=== PATIENT | male | born 1995 | race Caucasian/White ===

== ENCOUNTER 2017-11-24 02:39 | Emergency (ER) | payer OTHER ==
[~2017-11-24] VITALS: Ht 185.4 cm; Wt 90.7 kg
[~2017-11-24 02:39] MED LIST: AMOXICILLIN500 M1 PO; BACTRIM DS TAB1 EACH PO; CONCERTA18 M1 PO; DEPAKOTE; FOCALIN XR10 MG; NORCO 5-325 TA1 EACH PO; ROBAXIN500 MG PO; SEROQUEL
[2017-11-24 04:21] VITALS: BP 138/72
== END 2017-11-24 04:22 | disposition home or self-care (01) ==
LOC: M.ERS 02:39
DX: S91.312A Laceration without foreign body, left foot, initial encounter (principal); X58.XXXA Exposure to other specified factors, initial encounter; Y93.89 Activity, other specified; Y92.89 Other specified places as the place of occurrence of the external cause; Y99.8 Other external cause status

== ENCOUNTER 2019-04-02 00:31 | Emergency (ER) | payer OTHER ==
[~2019-04-02] VITALS: Ht 185.4 cm; Wt 90.3 kg
[2019-04-02] MEDS ORDERED: KEFLEX500 M1 PO (02:19)
[2019-04-02 02:55] VITALS: BP 148/92
== END 2019-04-02 02:55 | disposition home or self-care (01) ==
LOC: M.ERS 00:31
DX: S91.112A Laceration without foreign body of left great toe without damage to nail, initial encounter (principal); F90.9 Attention-deficit hyperactivity disorder, unspecified type; W23.0XXA Caught, crushed, jammed, or pinched between moving objects, initial encounter; Y93.89 Activity, other specified; Y92.89 Other specified places as the place of occurrence of the external cause; Y99.8 Other external cause status

== ENCOUNTER → 2021-04-16 | Outpatient (CLI) | payer OTHER ==
[~2021-04-16] MED LIST changes: +KEFLEX500 M1 PO
== END ==
LOC: M.LAB 16:17
PROVIDERS: ATTEND Internal Medicine Critical Care Medicine
DX: R07.1 Chest pain on breathing (principal); R06.02 Shortness of breath